=== PATIENT | female | born 1955 | race Caucasian/White ===

== ENCOUNTER 2020-01-03 15:00 | Emergency (ER) | payer BC, OTHER ==
--- NOTE | 2020-01-03 16:11 | RADIOLOGY REPORT (SQ) ---
EXAM DESCRIPTION: ANKLE LEFT COMPLETE IMAGES COMPLETED DATE/TIME: 01/03/2020 2:43 pm REASON FOR STUDY: INJURY/PAIN. Lateral ankle pain after twisting injury. COMPARISON: None. NUMBER OF VIEWS: Three views. TECHNIQUE: AP, lateral, and oblique radiographic images acquired of the left ankle. LIMITATIONS: None. FINDINGS: MINERALIZATION: Normal. BONES: No acute fracture or dislocation. No worrisome bone lesions. JOINTS: No effusions. SOFT TISSUES: There is mild soft tissue swelling. No radiopaque foreign body. OTHER: No other significant finding. IMPRESSION: No acute fracture or dislocation of the left ankle. Mild soft tissue swelling. TECHNICAL DOCUMENTATION: JOB ID: [id number] 2010 [employer]- All Rights Reserved Reading location - IP/workstation name: [email or web address]
--- NOTE | 2020-01-03 17:07 | ER Document Report ---
HPI - HPI Pain Level: 3 Notes: 64 y/o female with pmhx of htn presenting with left ankle pain s/p twisting injury and fall while [place] the [place] around noon today. Was unable to bear weight initially. Has decreased ROM with inversion. Mild ecchymosis. No other injuries reported. No lacerations or open wounds. - CONSTITUTIONAL Constitutional: DENIES: Fever, Chills - MUSCULOSKELETAL Musculoskeletal: REPORTS: Extremity pain - DERM Skin Color: Normal Past Medical History - Social History Smoking Status: Never Smoker Family History: Reviewed & Not Pertinent - Past Medical History Cardiac Medical History: Reports: Hx Hypertension Endocrine Medical History: Reports: Hx Diabetes Mellitus Type 2 Vertical Provider Document - HEENT HEENT: Atraumatic - NECK Neck: Normal Inspection - RESPIRATORY Respiratory: No Respiratory Distress - CARDIOVASCULAR Cardiovascular: Regular Rate - MUSCULOSKELETAL/EXTREMETIES Notes: Left ankle is ttp along anterior lateral malleolus. Mild bruising along medial anterior ankle. Mild swelling on lateral ankle. Good dorsalis pedis pulse. Capillary refill < 2 seconds. Strength 5/5. - NEURO Level of Consciousness: Awake, Alert, Appropriate Course - Re-evaluation Re-evalutation: 01/04/20 00:05 X-ray shows no fracture or dislocation. Does show mild swelling. I discussed these findings with patient. She was placed in a splint. Provided crutches. She can use Tylenol and ibuprofen to help alleviate her pain. I also discussed the use of ice and recommend elevating the ankle. I recommend patient be weightbearing as able. Return precautions discussed to include worsening symptoms or development of new symptoms. Also discussed with her that ankle injuries can take 2 to 3 weeks to heal. If she continues to have symptoms at that time recommend she follows up with her primary care provider and orthopedic surgeon. Patient acknowledges and verbalizes understanding of instruction plan. All questions answered - Vital Signs Vital signs: Temp Pulse Resp BP Pulse Ox 98.7 F 84 16 144/85 H 97 01/03/20 15:35 01/03/20 15:35 01/03/20 15:35 01/03/20 15:35 01/03/20 15:35 Discharge - Discharge Clinical Impression: Ankle sprain Qualifiers: Encounter type: initial encounter Involved ligament of ankle: other ligament Laterality: left Qualified Code(s): S93.492A - Sprain of other ligament of left ankle, initial encounter Condition: Stable Disposition: HOME, SELF-CARE Instructions: David Wrap ([facility]), Ice & Elevation ([facility]), Soft Ankle Splint ([facility]), Sprained Ankle ([facility]) Additional Instructions: Your x-ray does not show any acute fracture. You have a sprained ankle. Keep the area elevated, apply ice 20 minutes every 2 hours, and use crutches as needed. You should take ibuprofen 600 mg every 6 hours as needed for pain. Please return if you have worsening pain and swelling, fever greater than 101, you notice spreading redness from the area, or have any other symptoms that are concerning to you. Please follow-up with orthopedic surgery if your symptoms have not improved in the next 2-3 weeks. You may use tylenol and ibuprofen for pain relief. Referrals: LOCALMD,NO [NO LOCAL MD] - Follow up as needed
[2020-01-03 17:20] VITALS: BP 142/80
== END 2020-01-03 17:17 | disposition home or self-care (01) ==
LOC: ER 15:00
DX: S93.402A Sprain of unspecified ligament of left ankle, initial encounter (principal); M25.572 Pain in left ankle and joints of left foot; W01.0XXA Fall on same level from slipping, tripping and stumbling without subsequent striking against object, initial encounter; Y92.512 Supermarket, store or market as the place of occurrence of the external cause; I10 Essential (primary) hypertension; E11.9 Type 2 diabetes mellitus without complications
CPT/HCPCS: 99283